=== PATIENT | female | born 1985 | race African-American/Black ===

== ENCOUNTER 2017-11-04 12:06 | Emergency (ER) | payer OTHER ==
[~2017-11-04] VITALS: Ht 170.2 cm; Wt 69.8 kg
[2017-11-04] MEDS ORDERED: BENTYL 20 MG TA20 M1 PO (12:14)
[2017-11-04] MEDS ORDERED: PROTONIX40 M1 PO (12:14)
[2017-11-04 13:12] LABS: CALCIUM 8.5 mg/dL (8.5-10.1); CREATININE 0.7 mg/dL (0.6-1.3); POTASSIUM 3.4 mmol/L (3.5-5.1)
[2017-11-04 13:17] LABS: ALBUMIN 3.2 g/dL (3.4-5.0); TOTAL BILIRUBIN 0.4 mg/dL (<0.1-1.0); TOTAL PROTEIN 6.9 g/dL (6.4-8.2)
[2017-11-04 13:34] LABS: HEMATOCRIT 37.8 % (37.0-47.0); HEMOGLOBIN 12.6 gm/dL (12.0-15.0); MCH 33.2 pg (26.0-34.0); MCHC 33.3 g/dL (28.0-37.0); MCV 99.5 fL (80.0-100.0); MPV 7.3 fl. (7.2-11.1); NUCLEATED RBCS 0 /100WBC; PLATELET COUNT* 259 thou/uL (150-400); RDW-CV 13.1 % (10.5-14.5); WBC 9.7 thou/uL (4.0-11.0)
[2017-11-04 14:00] LABS: URINE BILIRUBIN NEGATIVE (Negative); URINE BLOOD NEGATIVE (Negative); URINE CLARITY CLEAR; URINE COLOR YELLOW; URINE GLUCOSE-RANDOM NEGATIVE (Negative); URINE KETONES 1+ (Negative); URINE LEUKOCYTES-REFLEX NEGATIVE (Negative); URINE NITRITE-REFLEX NEGATIVE (Negative); URINE PROTEIN TRACE (Negative); URINE SPECIFIC GRAVITY 1.025 (1.005-1.030); URINE UROBILINOGEN 0.2 E.U./dl (0.2-1.0)
[2017-11-04 14:22] LABS: ABSOLUTE LYMPHOCYTES 1.6 thou/uL (0.8-5.3); ABSOLUTE MONOCYTES 0.4 thou/uL (0.0-1.2); ABSOLUTE NEUTROPHILS 7.8 thou/uL (1.6-8.1); ATYPICAL LYMPHS 2 %; PLATELET ESTIMATE ADEQUATE
[2017-11-04] MEDS ORDERED: NORCO 5-325 TA1 EACH PO (14:54)
[2017-11-04] MEDS ORDERED: PHENERGAN 25 MG25 MG PO (14:54)
[2017-11-04] MEDS ORDERED: ZPAK PO (14:54)
[2017-11-04 15:57] VITALS: BP 109/62
== END 2017-11-04 16:04 | disposition home or self-care (01) ==
LOC: M.ERS 12:06
PROVIDERS: Nurse Practitioner Family
DX: R10.13 Epigastric pain (principal); J18.9 Pneumonia, unspecified organism; R11.2 Nausea with vomiting, unspecified; K86.1 Other chronic pancreatitis; Z90.49 Acquired absence of other specified parts of digestive tract; Z90.710 Acquired absence of both cervix and uterus; Z88.6 Allergy status to analgesic agent; Z88.2 Allergy status to sulfonamides